=== PATIENT | male | born 1980 | race Caucasian/White ===

== ENCOUNTER 2019-02-02 10:18 | Emergency (ER) | payer MEDICAID, SELFPAY ==
[2019-02-02 10:22] VITALS: BP 116/82; PULSE 67; RESP 16; TEMP 36.7; O2SAT 97
--- NOTE | 2019-02-02 11:13 | DI.RAD_ITS ---
EXAM: XR LUMBAR SPINE COMPLETE INDICATION: pain, r/o hardward. COMPARISON: LUMBAR SPINE COMPLETE from 04/25/2011 LUMBAR SPINE COMPLETE from 06/05/2012 TECHNIQUE: 2D digital imaging was performed. FINDINGS: Five views were obtained. There are Diana rods in place from L4 through S1 with a previously de scribed L5 on S1 spondylolisthesis again noted unchanged from 2013. There are disc implants in place at L4-5 and L5-S1. No evidence of hardware failure. No acute fracture. Intervertebral disc spaces of the upper lumbar region appear fairly well maintained. IMPRESSION: Conclusion no evidence of acute process
[2019-02-02 11:34] VITALS: BP 133/90; PULSE 54; RESP 15
--- NOTE | 2019-02-02 14:06 | W.ED.GENAD ---
Discharge Plan Disposition Patient Disposition: HOME Condition: Good Discharge Details Chief Complaint: Nk/Back Pain Clinical Impression: Back pain Primary Care Provider: None,None ED Provider: Karmen Jasso Home Meds and New Rx's Prescriptions: New cyclobenzaprine 10 mg tablet 10 mg PO TID PRN (Reason: muscle spasm) Qty: 10 RF: 0 No Action ibuprofen 600 MG tablet 600 mg PO PRN PRNRF: 0 methadone 5 mg/5 mL Solution 100 mg PO DAILY RF: 0 acetaminophen [Mapap Extra Strength] 500 MG tablet 650 mg PO PRN PRNRF: 0 Discharge Instructions Instructions: Back Pain (ED) Additional Instructions: Ice or heat to your back for discomfort. Rest activities as tolerated. Avoid heavy lifting. Use muscle relaxant as prescribed. Do not drive, drink, work while taking this medication will cause drowsiness. Do not mix with alcohol. Follow-up with primary care doctor if not improving the next 3 to 5 days. Return to the emergency room for alarming symptoms; specifically numbness, tingling or weakness of the legs, incontinence of urine or stool or for intolerable pain. Return to the ER for any worsening, alarming symptoms sooner if needed Stand Alone Forms: Work Release Discharge Data Discharge Date/Time-TO BE ENTERED AT DEPARTURE: 02/02/19 14:12 Medical Decision Making This a very pleasant 38-year-old patient who is years status post lumbar back surgery and is concerned as he had a slip and fall yesterday ultimately twisting his low back. Patient reports increase in low back pain since that time without radiation to the legs or red flags associated. On exam patient has nothing to indicate neurosurgical emergency at this time but does have lower back tenderness. Patient would prefer a x-ray of his lower back to be sure that the hardware is unchanged and intact. Patient ultimately had an x-ray which was unremarkable for acute fracture or hardware malfunction. Hardware in place per radiology's verbal order. Patient will be treated with conservative measures which were discussed in conjunction with Flexeril. Patient is compliant with his methadone. Alarming symptoms discussed. The patient was stable and requested discharge. Prior to discharge, my usual and customary return precautions were reviewed with the patient - this included follow-up instructions and reasons to return to the Emergency Department if conditions worsens, does not improve as expected, or other new concerns arise. HPI General Date/Time Provider Initiated Documentation: 02/02/19 11:06. HPI Narrative: This a pleasant 38-year-old man who reports back pain. Patient reports he is several years status post back surgery with significant hardware in his lower back. Patient reports yesterday he slipped and twisted his back. Did not fall and strike the ground however does report increase in lower back pain since that time. Patient is worse on the left and in the lower back without radiation into his legs. No associated numbness, tingling or weakness. No red flags. Patient reports taking [id number] medication as well as his methadone which he is compliant with without relief. No fevers, chills or ill feeling. Related Data Home Medications Medication Instructions Recorded Confirmed acetaminophen [Tylenol] 650 mg PO PRN PRN 05/19/16 02/02/19 ibuprofen 600 mg PO PRN PRN 07/24/16 02/02/19 cyclobenzaprine 10 mg PO TID PRN #10 tab 02/02/19 methadone 100 mg PO DAILY 02/02/19 02/02/19 Previous Rx's Medication Instructions Recorded cyclobenzaprine 10 mg PO TID PRN #10 tab 02/02/19 Allergies Allergy/AdvReac Type Severity Reaction Status Date / Time amoxicillin Allergy Severe Anaphylaxsi Unverified 02/02/19 10:27 s Penicillins AdvReac Severe Anaphylaxsi Unverified 02/02/19 10:27 s General Stated Complaint: Nk/Back Pain KIRSTY: 3 Review of Systems Review of Systems ROS Unobtainable: All systems reviewed & are unremarkable except as noted in HPI and below Constitutional Constitutional: Denies chills, Denies fatigue, Denies fever(s) and Denies headache(s) ENT Ears, Nose, Mouth, and Throat: Denies headache(s) and Denies neck pain Musculoskeletal Musculoskeletal: Reports back pain, Denies muscle weakness, Denies neck pain, Denies numbness and Denies radiating pain into limb Integumentary/Breasts Skin/Breast: Denies erythema, Denies rash and Denies wounds Neurologic Neurologic: Denies headache(s) and Denies numbness Endocrine Endocrine: Denies fatigue [facility] Medical History Back pain, lumbosacral (Acute) Fall from roof 2011 Opiate addiction (Acute) In [facility] methadone program currently Surgical History Hx of appendectomy (Chronic) Previous back surgery (Acute) L4, L5, S1 2017 @ [facility] Social History Smoking/Tobacco Use Status: Current every day Alcohol Intake: never Drug use: Rarely Substance use type: marijuana Do you feel safe at home: Yes Do you feel safe in your relationship?: Yes Exam Narrative Exam Narrative: CONST: Healthy appearing patient, in no acute distress. Well hydrated. Alert and alert. NECK: Normal visual inspection. FROM. Trachea midline. No Midline tenderness. CHEST: Normal insepection of the chest. RESP: Normal respiratory effort. Speaking full sentences. No cough. No audible wheezing. No retractions. MUSCULOSKELETAL: Normal Gait. FROM of all extremities. Distal neurovascularly intact. Sensation equal bilaterally. No foot drop. Reflexes intact bilaterally Back; no cervical or thoracic midline tenderness of the back. Surgical scar in place in the lumbar spine. Patient with mild lumbar tenderness with palpation over the midline as well as the paraspinal muscles on the left. No sciatic notch tenderness. Straight leg raise intact with mild increase in pain with full straight leg raise at 90 degrees. SKIN: Normal. Dry. No rashes. NEURO: Alert and awake. Speech clear. PSYCH: Normal affect. Cooperative. Course Vital Signs Vital signs: Vital Signs Temperature 36.7 C 02/02/19 10:22 Pulse 67 02/02/19 10:22 Respiratory Rate 16 02/02/19 10:22 Blood Pressure 116/82 02/02/19 10:22 Pulse Oximetry 97 02/02/19 10:22 Temperature 36.7 C 02/02/19 10:22 Temperature Source Skin 02/02/19 10:22 Pulse 54 L 02/02/19 11:34 Respiratory Rate 15 02/02/19 11:34 Respiratory Effort 02/02/19 10:29 Blood Pressure 133/90 02/02/19 11:34 Blood Pressure Mean 104 02/02/19 11:34 Blood Pressure Position Sitting 02/02/19 10:22 Pulse Oximetry 97 02/02/19 10:22 Oxygen Delivery Method Room Air 02/02/19 10:22 Oxygen Flow Rate 0 02/02/19 10:22 Pain Level 10 02/02/19 10:39
[2019-02-02 14:19] VITALS: BP 123/73; PULSE 88; RESP 16; TEMP 36.7; O2SAT 97
== END 2019-02-02 14:12 | disposition home or self-care (01) ==
PROVIDERS: Emergency Provider Physician Assistant
DX: M54.5 Low back pain (principal); Z96.9 Presence of functional implant, unspecified; Z79.891 Long term (current) use of opiate analgesic
CPT/HCPCS: 99283; 72110

== ENCOUNTER 2020-07-16 09:26 | Emergency (ER) | payer MEDICAID, SELFPAY ==
--- NOTE | 2020-07-16 09:30 | DI.RAD_ITS ---
EXAM: XR THUMB RT CLINICAL HISTORY: Pain after injuy. TECHNIQUE: 2D digital imaging was performed. COMPARISON: No exams were available for comparison FINDINGS: There is no evidence of obvious fracture or dislocation. No radiopaque foreign body. On 1 image is a subtle suggestion of a nondisplaced tuft fracture of the distal phalanx of the thumb. If clinically indicated additional dedicated views of the thumb could be performed. Nevertheless, th is would be a nondisplaced fracture. There is no radiopaque foreign body. IMPRESSION: Possible subtle nondisplaced fracture of the tuft of the distal phalanx of the thumb. DATA REPOSITORY: RADIATION DOSE DELIVERED:
[2020-07-16 09:31] VITALS: BP 146/84; PULSE 83; RESP 16; TEMP 36.4; O2SAT 99
--- NOTE | 2020-07-16 09:38 | W.ED.GENAD ---
Discharge Plan Disposition Patient Disposition: HOME Condition: Improving Discharge Details Clinical Impression: Sprain of ulnar collateral ligament Primary Care Provider: None,None ED Provider: Rivas Mejia Home Meds and New Rx's Prescriptions: Continued ibuprofen 600 MG tablet 600 mg PO PRN PRNRF: 0 methadone 5 mg/5 mL Solution 110 mg PO DAILY RF: 0 cyclobenzaprine 10 mg tablet 10 mg PO TID PRN (Reason: muscle spasm) Qty: 10 RF: 0 acetaminophen [Mapap Extra Strength] 500 MG tablet 650 mg PO PRN PRNRF: 0 gabapentin 300 mg capsule 300 mg PO QID RF: 0 Discharge Instructions Additional Instructions: Please thumb in thumb spica splint. As discussed, please follow-up with orthopedics, call them for an appointment time at [phone]. Continue Tylenol and/or ibuprofen as needed for pain. May use ice on top of splint to reduce discomfort. Elevate above the level of the heart to reduce pain and swelling. Return for any acute concerns. Medical Decision Making 39-year-old male was using a ratchet on a car part with his thumb lying on the axis of the ratchet handle while gripping and forcefully pushing away. He felt his thumb give out and is developed pain at the base of the thumb since that time. Referred for x-ray which notes questionable nondisplaced fracture of distal phalanx. I am more concerned for ulnar collateral ligament injury, will place the patient in a splint with thumb spica, and have him follow-up in orthopedic clinic. He understands homecare and follow-up, as well as return precautions. He is stable for discharge to home HPI General Mode of arrival: ambulatory. Date/Time Provider Initiated Documentation: 07/16/20 09:26. Limitations to Documentation: no limitations. Information obtained by: patient. History of Present Illness 39 year old M presents to the emergency department with the chief complaint of Right thumb injury while using a ratchet last pm, described as moderate, Quality is described as dull and constant, and is localized to the right and upper extremity. Patient reports no radiation. Patient started experiencing this hour(s) and it has been constant. No relieving factors improve symptom(s), No exacerbating factors reported . Patient notes weakness. Patient did receive the following treatments prior to arrival, NSAID Related Data Home Medications Medication Instructions Recorded Confirmed acetaminophen [Mapap Extra 650 mg PO PRN PRN 05/19/16 07/16/20 Strength] ibuprofen 600 mg PO PRN PRN 07/24/16 07/16/20 cyclobenzaprine 10 mg PO TID PRN #10 tab 02/02/19 07/16/20 methadone 110 mg PO DAILY 02/02/19 07/16/20 gabapentin 300 mg PO QID 07/16/20 07/16/20 Previous Rx's Medication Instructions Recorded cyclobenzaprine 10 mg PO TID PRN #10 tab 02/02/19 Allergies Allergy/AdvReac Type Severity Reaction Status Date / Time amoxicillin Allergy Severe Anaphylaxsi Unverified 07/16/20 09:33 s Penicillins AdvReac Severe Anaphylaxsi Unverified 07/16/20 09:33 s General Stated Complaint: Orthopedic KIRSTY: 4 Review of Systems Narrative: 4 systems reviewed and otherwise negative. No other injury. No numbness. Pain with movement. [facility] Medical History Back pain, lumbosacral Fall from roof 2011 Opiate addiction In [facility] methadone program currently Surgical History Hx of appendectomy Previous back surgery L4, L5, S1 2017 @ [facility] Social History Smoking/Tobacco Use Status: Current every day Smoking risk assessment performed?: Yes Alcohol Intake: never Drug use: Rarely Substance use type: marijuana Do you feel safe at home: Yes Do you feel safe in your relationship?: Yes Exam Narrative Exam Narrative: GEN: awake, alert, oriented 3. Pleasant, well groomed, interactive. HEAD: Normocephalic, atraumatic ENT: Mucous membranes moist, oropharynx unremarkable, External ear exam unremarkable EYES: PERRL, EOMI NECK: Full ROM, no WAN, no menigismus EXT: Right thumb tender proximally and overlying the anatomical snuffbox. Minimal pain with resisted supination. Pain with axial loading of the right thumb. Motor is limited in apposition by pain. There is laxity of the thumb with ulnar stress, although the exam is compromised by pain. Neuro: Grossly normal neurologic exam, conversant, interactive. Psych: Speech fluent, thoughts congruent, affect normal Course Vital Signs Vital signs: Vital Signs Temperature 36.4 C L 07/16/20 09:31 Pulse 83 07/16/20 09:31 Respiratory Rate 16 07/16/20 09:31 Blood Pressure 146/84 H 07/16/20 09:31 Pulse Oximetry 99 07/16/20 09:31 Temperature 36.4 C L 07/16/20 09:31 Temperature Source Skin 07/16/20 09:31 Pulse 83 07/16/20 09:31 Respiratory Rate 16 07/16/20 09:31 Respiratory Effort Non-Labored 07/16/20 09:31 Blood Pressure 146/84 H 07/16/20 09:31 Blood Pressure Position Sitting 07/16/20 09:31 Pulse Oximetry 99 07/16/20 09:31 Oxygen Delivery Method Room Air 07/16/20 09:31 Oxygen Flow Rate 0 07/16/20 09:31 Pain Level 6 07/16/20 09:35
--- NOTE | 2020-07-16 10:00 | DI.VRAD_ITS ---
PROCEDURE INFORMATION: Exam: XR Right Finger(s) Exam date and time: 07/16/2020 9:45 AM Age: 39 years old Clinical indication: Injury or trauma; Other: Smashed; Blunt trauma (contusions or hematomas); Finger; Right; Thumb TECHNIQUE: Imaging protocol: XR Right fingers. Views: Minimum 2 views. COMPARISON: No relevant images were readily available for comparison purposes. FINDINGS: Bones/joints: Questionable acute nondisplaced fracture distal phalanx 1st digit. Best seen on image 1 series 3. Soft tissues: Mild soft tissue swelling. IMPRESSION: Questionable nondisplaced fracture 1st digit distal phalanx. Dictated and Authenticated by: Lm Hathaway MD. Ordering:OBDULIA Hathaway MD
== END 2020-07-16 10:10 | disposition home or self-care (01) ==
PROVIDERS: Emergency Provider Emergency Medicine
DX: S63.641A Sprain of metacarpophalangeal joint of right thumb, initial encounter (principal); X50.9XXA Other and unspecified overexertion or strenuous movements or postures, initial encounter
CPT/HCPCS: 29125; 99283; 73140

== ENCOUNTER 2022-07-10 03:04 | Emergency (ER) | payer MEDICAID, SELFPAY ==
[2022-07-10 03:08] VITALS: BP 129/79; PULSE 92; RESP 16; TEMP 36.6; O2SAT 99
--- NOTE | 2022-07-10 03:10 | ED.GENADUL_ITS ---
Discharge Plan Disposition Patient Disposition: Home Condition: Stable Discharge Details Clinical Impression: Left elbow tendonitis Primary Care Provider: None,None ED Provider: Cordelia Walker Home Meds and New Rx's Prescriptions: New ibuprofen 600 mg tablet 600 mg PO Q6H PRNQty: 20 0RF Continued ibuprofen 600 MG tablet 600 mg PO PRN PRN acetaminophen [Mapap Extra Strength] 500 MG tablet 650 mg PO PRN PRN gabapentin 300 mg capsule 800 mg PO QID Patient Comments: TK 1 C PO BID AND 2 CS HS UTD FOR 30 DAYS Discharge Instructions Instructions: Tendinitis (ED) Additional Instructions: You likely have a tendinitis which is an inflammation of the tendon in your elbow from repetitive use. Rest, ice, and elevate the affected area as much as possible. Take 600 mg of ibuprofen every 6 hours as needed and directed for pain. You can also take 500 mg of Tylenol every 4 hours as needed and directed for p ain. Follow-up with your primary care doctor in 1 week and for referral to orthopedics for further evaluation if indicated. Return to the emergency department with any worsening or new concerning sy mptoms. Referrals: Lauri Vázquez MD [ [facility] STAFF PHYSICIAN] - Discharge Data Discharge Physician: Cordelia Walker Medical Decision Making 41-year-old [id number] male diagnosed with tennis elbow several months ago presents with worsening left elbow pain for the past week. Denies any recent injury. Patient appears comfortable and nontoxic. He is afebrile. His left lateral epicondyle is tender to palpation and pain is reproducible with pronation and supination with resistance. There is no evidence of cellulitis, trauma or deformity. He is neurovascularly intact. Suspect lateral epicondylitis or tendinitis. Do not see an indication for x-ray as he has no recent injury and there is no evidence of trauma. Coban placed over left lateral epicondyle. Patient advised on the importance of rest, ice and alternating Tylenol and ibuprofen. He was advised that he could use a left elbow brace to help with compression. He is advised to follow-up with his primary care doctor for reevaluation and for referral to orthopedics if his symptoms do not improve or w orsen for consideration of cortisone injection. Usual and customary return precautions given prior to discharge. Medical Records Medical records reviewed: Yes I reviewed the patient's medical records. HPI General Mode of arrival: ambulatory . Date/Time Provider Initiated Documentation: 07/10/22 03:04 . Limitations to Documentation: no limitations . Information obtained by: patient . HPI Narrative: Patient is a 41-year-old left hand dominant male diagnosed recently with tennis elbow in his left elbow presents with worsening left elbow pain for the past week. Patient denies any recent injury but states he is mainly left-handed and works frequently with his hands. Patient states he has been taking ibuprofen and Tylenol without significant relief. Patient denies any known fever. Related Data Home Medications Medication Instructions Recorded Confirmed acetaminophen 500 mg tablet (Mapap 650 mg PO PRN PRN 05/19/16 07/10/22 Extra Strength) ibuprofen 600 mg tablet 600 mg PO PRN PRN 07/24/16 07/10/22 gabapentin 300 mg capsule 800 mg PO QID 07/16/20 07/10/22 ibuprofen 600 mg tablet 600 mg PO Q6H PRN #20 tabs 07/10/22 Previous Rx's Medication Instructions Recorded ibuprofen 600 mg tablet 600 mg PO Q6H PRN #20 tabs 07/10/22 Allergies Allergy/AdvReac Type Severity Reaction Status Date / Time amoxicillin Allergy Severe Anaphylaxsi Unverified 07/16/20 09:33 s Penicillins AdvReac Severe Anaphylaxsi Unverified 07/16/20 09:33 s General Stated Complaint: Orthopedic KIRSTY: 4 Review of Systems All systems reviewed & are unremarkable except as noted in HPI and below Constitutional Constitutional: Reports as per HPI, Denies chills and Denies fever(s) Eyes Eyes: Denies blurry vision ENT Ears, Nose, Mouth, and Throat: Denies dizziness, Denies sore throat and Denies throat swelling Cardiovascular Cardiovascular: Denies chest pain and Denies dyspnea Respiratory Respiratory: Denies cough and Denies dyspnea Gastrointestinal Gastrointestinal: Denies abdominal pain, Denies diarrhea and Denies vomiting Genitourinary Genitourinary: Denies hematuria and Denies dysuria Musculoskeletal Musculoskeletal: Denies back pain and Denies numbness Comments: left elbow pain Integumentary/Breasts Skin/Breast: Denies lesions and Denies rash Neurologic Neurologic: Denies dizziness, Denies localized weakness and Denies numbness Allergic/Immunologic Allergic/Immunologic: Denies throat swelling PFSH All Active Problems (Updated 07/10/22 @ 03:33 by Cordelia Walker DO) Left elbow tendonitis (Acute) Medical History Back pain, lumbosacral Fall from roof 2011 Opiate addiction In [facility] methadone program currently Surgical History Hx of appendectomy Previous back surgery L4, L5, S1 2017 @ [facility] Social History Smoking/Tobacco Use Status: Current every day Smoking risk assessment performed?: Yes Alcohol Intake: never Drug use: Rarely Substance use type: marijuana Do you feel safe at home: Yes Do you feel safe in your relationship?: Yes Exam Const General: cooperative, healthy appearing and no acute distress HENMT Head: normal to inspection Mouth: oral mucosae normal Eyes General: appearance normal, both eyes and all related structures Neck Neck: normal visual inspection Resp Effort & Inspection: normal respiratory effort and able to speak in complete sentences Cardio Rate: regular rate Skin General skin exam: no rashes or lesions noted Neuro General: patient alert, patient awake and patient oriented x3 Motor: muscle tone normal throughout Extrem General: normal to inspection Elbow/forearm/wrist images: 1. Tenderness to palpation overlying left lateral epicondyle. Pain in this location is reproduced with pronation and supination, increased with resistance. There is no edema, erythema, ecchymosis. There is no deformity. There is no tenderness to palpation to olecranon or medial epicondyle. Other: Normal flexion and extension at left elbow. Left radial and ulnar pulses intact. Psych Appearance: grossly normal Affect: normal affect
== END 2022-07-10 03:43 | disposition home or self-care (01) ==
PROVIDERS: Emergency Provider Physician Assistant
DX: M77.12 Lateral epicondylitis, left elbow (principal)
CPT/HCPCS: 99283

== ENCOUNTER 2022-09-13 22:12 | Emergency (ER) | payer MEDICAID, SELFPAY ==
--- NOTE | 2022-09-13 22:15 | DI.RAD_ITS ---
Exam(s) XR FOOT RT COMPLETE EXAM: XR FOOT RT COMPLETE CLINICAL HISTORY: pain, atraumatic. TECHNIQUE: 2D digital imaging was performed of the right foot. Three images were obtained. AP, obl ique and lateral views were obtained. COMPARISON: No exams were available for comparison FINDINGS: BONES: No acute fracture is present. No bony destructive lesion is seen. There is a small cystic well -circumscribed structure at the base of the proximal phalanx of the great toe. This may represent a small subchondral cyst. Bone mineralization is otherwise age-appropriate. JOINTS: No dislocation present. SOFT TISSUE: Normal. IMPRESSION: 1. No acute fracture or dislocation. 2. Benign-appearing simple cyst in the subchondral bone of the proximal phalanx of the great toe. Th is may represent a subchondral cyst. DATA REPOSITORY: RADIATION DOSE DELIVERED:
[2022-09-13 22:16] VITALS: BP 153/94; PULSE 88; RESP 16; TEMP 36.7; O2SAT 100
[2022-09-13] MEDS: Ibuprofen 600 MG TAB PO (23:10)
--- NOTE | 2022-09-13 23:11 | DI.VRAD_ITS ---
PROCEDURE INFORMATION: Exam: XR Right Foot Exam date and time: 09/13/2022 10:38 PM Age: 41 years old Clinical indication: Foot; Right; Patient HX: Pain, atraumatic TECHNIQUE: Imaging protocol: Radiologic exam of the right foot. Views: 3 or more views. COMPARISON: No relevant prior studies available. FINDINGS: Bones/joints: Low-attenuation lesion present within the proximal aspect of the proximal phalanx of the right great toe measuring 6.2 x 4.7 mm likely representing small subchondral cyst. Consider early osteoarthritis. Bone mineralization is otherwise age-appropriate. There is no evidence of fracture. No evidence of dislocation. Mild joint space narrowing present within the proximal and distal interphalangeal joints. Soft tissues: No radiopaque foreign body present. There is soft tissue swelling present. IMPRESSION: 1. Possible early osteoarthritis. 2. Soft-tissue swelling right foot. Dictated and Authenticated by: Marquis Cameron MD. Ordering:FOX Ackerman MD
--- NOTE | 2022-09-13 23:33 | ED.GENADUL_ITS ---
Discharge Plan Disposition Patient Disposition: Home Discharge Details Clinical Impression: Muscle strain of foot Primary Care Provider: Сергей Kennedy ED Provider: Meka Lundberg Home Meds and New Rx's Prescriptions: Continued ibuprofen 600 MG tablet 600 mg PO PRN PRN acetaminophen [Mapap Extra Strength] 500 MG tablet 650 mg PO PRN PRN gabapentin 300 mg capsule 800 mg PO QID Patient Comments: TK 1 C PO BID AND 2 CS HS UTD FOR 30 DAYS ibuprofen 600 mg tablet 600 mg PO Q6H PRNQty: 20 0RF Discharge Instructions Additional Instructions: Take ibuprofen 600 mg every 8 hours with food, take Tylenol 650 mg every 4-6 paulina rs Wear your boot Repeat film in 1 week with persistent pain, with worsening pain, fever, chills, please return immediately for reassessment return earlier should he have new onset complaints Referrals: Сергей Kennedy [Primary Care Provider] - Discharge Data Discharge Date/Time-TO BE ENTERED AT DEPARTURE: 09/14/22 00:44 Medical Decision Making 41-year-old male presents with report of injury to right foot X-ray does not show significant acute abnormality, small subchondral cyst, suspect osteoarthritis per radiology interpretation my review Placed in boot for comfort, ibuprofen and Tylenol No evidence of obvious fracture HPI General Date/Time Provider Initiated Documentation: 09/13/22 22:26 . HPI Narrative: This 41-year-old male presents with report of right foot pain, denies known injury. Denies history of this spot before. States he noticed a bruise on the area. Thinks he may have injured it at work today. Related Data Home Medications Medication Instructions Recorded Confirmed acetaminophen 500 mg tablet (Mapap 650 mg PO PRN PRN 05/19/16 09/13/22 Extra Strength) ibuprofen 600 mg tablet 600 mg PO PRN PRN 07/24/16 09/13/22 gabapentin 300 mg capsule 800 mg PO QID 07/16/20 09/13/22 ibuprofen 600 mg tablet 600 mg PO Q6H PRN #20 tabs 07/10/22 09/13/22 Previous Rx's Medication Instructions Recorded ibuprofen 600 mg tablet 600 mg PO Q6H PRN #20 tabs 07/10/22 Allergies Allergy/AdvReac Type Severity Reaction Status Date / Time amoxicillin Allergy Severe Anaphylaxsi Unverified 09/13/22 22:19 s Penicillins Allergy Severe Anaphylaxsi Unverified 09/14/22 07:09 s General Stated Complaint: Orthopedic KIRSTY: 4 PFSH All Active Problems (Updated 09/13/22 @ 23:15 by RADHA Zelaya) Muscle strain of foot (Acute) Medical History Back pain, lumbosacral Fall from roof 2011 Opiate addiction In [facility] methadone program currently Surgical History Hx of appendectomy Previous back surgery L4, L5, S1 2017 @ [facility] Social History Smoking/Tobacco Use Status: Current every day Tobacco Type: e-cigarettes Smoking risk assessment performed?: Yes Alcohol Intake: never Drug use: Rarely Substance use type: marijuana Do you feel safe at home: Yes Do you feel safe in your relationship?: Yes Exam Extrem Other: Ecchymosis noted to your right lateral foot neurovascularly intact, no ankle tenderness, no evidence of infection Neurovascularly intact Course Vital Signs Vital signs: Vital Signs Temperature 36.7 C 09/13/22 22:16 Pulse 88 09/13/22 22:16 Respiratory Rate 16 09/13/22 22:16 Blood Pressure 153/94 H 09/13/22 22:16 Pulse Oximetry 100 09/13/22 22:16 Temperature 36.7 C 09/13/22 22:16 Temperature Source Temporal Artery Scan 09/13/22 22:16 Pulse 88 09/13/22 22:16 Respiratory Rate 16 09/13/22 22:16 Respiratory Effort Normal 09/13/22 22:16 Blood Pressure 153/94 H 09/13/22 22:16 Blood Pressure Position Sitting 09/13/22 22:16 Pulse Oximetry 100 09/13/22 22:16 Oxygen Delivery Method Room Air 09/13/22 22:16 Oxygen Flow Rate 0 09/13/22 22:16 Pain Level 9 09/13/22 22:46
[2022-09-13] MEDS: Acetaminophen 325 MG TAB 650 MG PO (23:45)
== END 2022-09-14 00:44 | disposition home or self-care (01) ==
PROVIDERS: Emergency Provider Physician Assistant; PCP Physician Assistant
DX: S96.911A Strain of unspecified muscle and tendon at ankle and foot level, right foot, initial encounter (principal); X58.XXXA Exposure to other specified factors, initial encounter
CPT/HCPCS: 99283; 73630

== ENCOUNTER 2023-06-24 18:56 | Emergency (ER) | payer SELFPAY ==
[2023-06-24 18:59] VITALS: BP 153/112; PULSE 105; RESP 18; TEMP 36.9; O2SAT 98
--- NOTE | 2023-06-24 19:00 | DI.RAD_ITS ---
Exam(s) XR SHOULDER LT COMPLETE 2+V EXAM: XR SHOULDER LT COMPLETE 2+V CLINICAL HISTORY: fall saturday, L shoulder pain. TECHNIQUE: 2D digital imaging was performed of the left shoulder. Five images were obtained. AP, G rashey, Y-view and axillary views were obtained. COMPARISON: No exams were available for comparison FINDINGS: BONES: No acute fracture is present. No bony destructive lesion is seen. JOINTS: No dislocation present. SOFT TISSUE: Normal. IMPRESSION: No acute fracture or dislocation. DATA REPOSITORY: RADIATION DOSE DELIVERED:
--- NOTE | 2023-06-24 19:00 | RT.EKG_ITS ---
APPROVED REPORT Exam: Resting ECG Reason for Exam: chest pain Patient Location: E HR:101 bpm ECG Measurements Heart Rate 101 AXIS WA 177 P 34 QRSd 94 QRS 65 QT 383 T 27 QTc 498 Conclusion Sinus tachycardia...rate> 99 Consider left ventricular hypertrophy...(S V1+R V5/V6) >3.50mV sinus tach, normal axis, normal intervals, LVH
[2023-06-24 19:20] LABS: Abs Immature Grans 0.01 10^3/uL (0.0-0.06); Absolute Basophil Count 0.02 10^3/uL (0.0-0.2); Absolute Eosinophil Count 0.08 10^3/uL (0.0-0.7); Absolute Lymphocyte Count 1.51 10^3/uL (1.2-3.4); Absolute Monocyte Count 0.47 10^3/uL (0.1-0.8); Absolute Neutrophil Count 5.75 10^3/uL (1.2-6.7); Basophils % 0.3; HCT 37.7 % (40.0-50.0); HGB 13.4 g/dL (13.5-17.5); Immature Grans % 0.1; Lymphocytes % 19.3; MCH 31.9 pg (27.0-33.0); MCHC 35.5 % (32.0-36.0); MCV 90 fL (80-95); MPV 10.1 fL (8.0-11.0); Neutrophils % 73.3; Platelet Count 164 10^3/uL (130-400); RDW 11.9 % (11.8-14.1); RDW-SD 38.8 fL; WBC 7.84 10^3/uL (4.4-10.8)
--- NOTE | 2023-06-24 19:33 | W.ED.GENAD ---
Discharge Plan Disposition Patient Disposition: Against Medical Advice Condition: Stable Discharge Details Clinical Impression: Chest pain of uncertain etiology Primary Care Provider: Сергей Kennedy ED Provider: Dwain Jackson Home Meds and New Rx's Prescriptions: No Action ibuprofen 600 MG tablet 600 mg PO PRN PRN dextroamphetamine-amphetamine 20 mg tablet Patient Comments: TAKE ONE TABLET BY MOUTH TWICE A DAY acetaminophen [Mapap Extra Strength] 500 MG tablet 650 mg PO PRN PRN gabapentin 300 mg capsule 800 mg PO QID Patient Comments: TK 1 C PO BID AND 2 CS HS UTD FOR 30 DAYS ibuprofen 600 mg tablet 600 mg PO Q6H PRNQty: 20 0RF HPI General Date/Time Provider Initiated Documentation: 06/24/23 19:05. HPI Narrative: 42 year-old male presents to ED today by POV/ambulating with a chief complaint of L sided chest pain, pain with deep inspiration - he fell through a floor on Saturday, and landed in his groin as well as to L axilla- endorses bruising and pain to this area of L axilla, much more mild to groin area. Quality described as sharp pain with deep inspiration, no radiation to fever, cough, diaphoresis, dizziness, hemoptysis. Severity is described as 8/10. Palliating factors include nothing specific- woke up with the pain this morning. Provoking factors include nothing specific. Patient not anticoagulated. Related Data Home Medications Medication Instructions Recorded Confirmed acetaminophen 500 mg tablet (Mapap 650 mg PO PRN PRN 05/19/16 06/24/23 Extra Strength) ibuprofen 600 mg tablet 600 mg PO PRN PRN 07/24/16 06/24/23 gabapentin 300 mg capsule 800 mg PO QID 07/16/20 06/24/23 ibuprofen 600 mg tablet 600 mg PO Q6H PRN #20 tabs 07/10/22 06/24/23 dextroamphetamine-amphetamine 20 06/24/23 mg tablet Previous Rx's Medication Instructions Recorded ibuprofen 600 mg tablet 600 mg PO Q6H PRN #20 tabs 07/10/22 Allergies Allergy/AdvReac Type Severity Reaction Status Date / Time amoxicillin Allergy Severe Anaphylaxsi Unverified 06/24/23 19:07 s Penicillins Allergy Severe Anaphylaxsi Unverified 06/24/23 19:07 s General Stated Complaint: Chest Pain KIRSTY: 2 Review of Systems All systems reviewed & are unremarkable except as noted in HPI and below Exam Narrative Exam Narrative: GENERAL APPEARANCE: Well-nourished, non-toxic, awake and alert, atraumatic, no acute distress. SKIN: Warm, pink, dry, intact, without rashes/lesions/ulcerations. HEAD: Normocephalic, atraumatic, normal hair distribution for gender/age. EYES: Pupils PERRLA, EOMs intact without nystagmus, normal conjunctiva, no exudates on lids/lashes. ENT: Nares patent, no circumoral cyanosis, no facial swelling NECK: Supple, trachea midline, painless cervical ROM. LUNGS/CHEST: Lungs CTA bilaterally- no rhonchi/rales/wheezes diffusely, no focally diminished or absent lung sounds diffusely, non-labored respirations, normal A/P diameter, symmetrical expansion, no chest wall deformity, no flail segment, no paradoxical motion, no crepitus to L axillary ribs- tender with palpation, small area of bruising to L axillary ribs HEART (CV/PV): Regular rate- mildly tachycardic and rhythm without murmur, no peripheral edema, no JVD. ABDOMEN: Soft, non-distended, no guarding, no tenderness. MSK: Normal ROM, no swelling/deformity to bilateral UEs or LEs, moving all extremities without weakness, no cyanosis, spine midline without tenderness, normal curvature, TTP to L shoulder diffusely without deformity or crepitus, clavicle stable, ROM intact, strength 5/5 L UE NEURO: Mental Status AAOx4 - alert to person, place, time, events No facial droop, no forehead involvement. Motor: No focal weakness - strength 5/5 in bilateral UEs and LEs, proximal and distal, symmetric. Sensory: sensation intact to light touch globally. Gait normal: patient ambulated without ataxia into ED room. PSYCH: euthymic, cooperative, pleasant, appropriate speech Course Vital Signs Vital signs: Vital Signs Temperature 36.9 C 06/24/23 18:59 Pulse 105 H 06/24/23 18:59 Respiratory Rate 18 06/24/23 18:59 Blood Pressure 153/112 H 06/24/23 18:59 Pulse Oximetry 98 06/24/23 18:59 Temperature 36.9 C 06/24/23 18:59 Temperature Source Tympanic 06/24/23 18:59 Pulse 105 H 06/24/23 18:59 Respiratory Rate 18 06/24/23 18:59 Respiratory Effort Normal 06/24/23 19:09 Blood Pressure 153/112 H 06/24/23 18:59 Blood Pressure Position Sitting 06/24/23 18:59 Pulse Oximetry 98 06/24/23 18:59 Oxygen Delivery Method Room Air 06/24/23 18:59 Oxygen Flow Rate 0 06/24/23 18:59 Lab/Test Results Lab/Test Results: Laboratory Tests Range/Units 06/24/23 19:11 WBC (4.4-10.8) 10^3/uL 7.84 RBC (4.36-5.78) 10^6/uL 4.20 L Hgb (13.5-17.5) g/dL 13.4 L Hct (40.0-50.0) % 37.7 L MCV (80-95) fL 90 MCH (27.0-33.0) pg 31.9 MCHC (32.0-36.0) % 35.5 RDW (11.8-14.1) % 11.9 Plt Count (130-400) 10^3/uL 164 MPV (8.0-11.0) fL 10.1 Immature Gran % 0.1 Neutrophils % 73.3 Lymphocytes % 19.3 Monocytes % 6.0 Eosinophils % 1.0 Basophils % 0.3 Nucleated RBC % (0.0-0.3) % 0.0 Absolute Neutrophils (1.2-6.7) 10^3/uL 5.75 Absolute Lymphocytes (1.2-3.4) 10^3/uL 1.51 Absolute Monocytes (0.1-0.8) 10^3/uL 0.47 Absolute Eosinophils (0.0-0.7) 10^3/uL 0.08 Absolute Basophils (0.0-0.2) 10^3/uL 0.02 Medical Decision Making This dictation utilizes [id number] dictation software and may contain unedited grammatical errors. 42 y/o M presents to ED today with a chief complaint of fall on saturday- [place] floor [place]- impact on beam to L axilla w/ ecchymosis + shoulder pain- less so to groin, states sharp pain with deep inspiration. No diaphoresis, hemoptysis, fever, cough, dizziness. Patients' medical history: negative, states no cardiac history. 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 Pertinent exam findings / vital signs include no crepitus to left axillary ribs, no paradoxical motion, no focally diminished or absent lung sounds, mild tachycardia. Differential / pathologies of concern include pulmonary contusion, fractured rib, pneumothorax, pulmonary embolism. Diagnostic studies of: -CBC, CMP, troponin, BNP, D-dimer, EKG, x-ray left shoulder, CTA of the chest. -No leukocytosis -D-dimer mildly elevated at 639 reflex to CTA, patient left before this was performed AGAINST MEDICAL ADVICE -Mild low magnesium -Troponin and BNP negative -Lipase negative -X-ray of the shoulder shows no acute fracture, there is no visible pneumothorax but this is not a complete rule out -EKG shows sinus rhythm at 101 bpm with P waves followed by narrow complex QRS some Q deflections in lead II and III as well as aVF, normal axis, mild ST depression in lead III, do not suspect ischemic changes, LVH, poor R-wave progression, normal QTc Interventions of: -Patient had medications ordered for pain when he left AMA, refused to wait even 2 minutes. ED Course/Assessment/Plan: 42-year-old male presents with chest pain after a fall to the floor catching himself on a beam under the left axilla with some bruising to the area I do suspect that he may have rib injury but pulmonary contusion or pneumothorax is not ruled out. The patient stated he wanted to leave, his shoulder x-ray was unremarkable and his labs showed no likely acute coronary syndrome, his CMP was benign and had no signs of infection, his D-dimer was slightly elevated and he was tachycardic with pain with deep inspiration so I did order a CTA PE study but he left AGAINST MEDICAL ADVICE before this was performed. Stated he might return tomorrow, I advised him that we were not ruling out pneumothorax definitively as well as rib fractures or pulmonary embolism which is a potentially fatal diagnosis, the patient acknowledged this risk and chose to leave AGAINST MEDICAL ADVICE. Findings not consistent with hypoxic respiratory failure, acute coronary syndrome. Disposition of Chest Pain of Uncertain Etiology. Patient verbalized understanding of the plan and return to ED criteria and engaged in shared decision making. Medical Records Medical records reviewed: Yes I reviewed the patient's medical records. Imaging Data Radiologic Study: Attestation: I personally reviewed and interpreted this imaging study as follows: Imaging: X-Ray My impression: No L PTX seen on shoulder - patient left AMA prior to chest imaging. Radiologist's impression: EXAM: XR SHOULDER LT COMPLETE 2+V CLINICAL HISTORY: fall saturday, L shoulder pain. TECHNIQUE: 2D digital imaging was performed of the left shoulder. Five images were obtained. AP, Grashey, Y-view and axillary views were obtained. COMPARISON: No exams were available for comparison FINDINGS: BONES: No acute fracture is present. No bony destructive lesion is seen. JOINTS: No dislocation present. SOFT TISSUE: Normal. IMPRESSION: No acute fracture or dislocation. Lab Data Lab results reviewed: Yes I reviewed the patient's lab results. Labs: Laboratory Tests Range/Units 06/24/23 19:11 WBC (4.4-10.8) 10^3/uL 7.84 RBC (4.36-5.78) 10^6/uL 4.20 L Hgb (13.5-17.5) g/dL 13.4 L Hct (40.0-50.0) % 37.7 L MCV (80-95) fL 90 MCH (27.0-33.0) pg 31.9 MCHC (32.0-36.0) % 35.5 RDW (11.8-14.1) % 11.9 Plt Count (130-400) 10^3/uL 164 MPV (8.0-11.0) fL 10.1 Immature Gran % 0.1 Neutrophils % 73.3 Lymphocytes % 19.3 Monocytes % 6.0 Eosinophils % 1.0 Basophils % 0.3 Nucleated RBC % (0.0-0.3) % 0.0 Absolute Neutrophils (1.2-6.7) 10^3/uL 5.75 Absolute Lymphocytes (1.2-3.4) 10^3/uL 1.51 Absolute Monocytes (0.1-0.8) 10^3/uL 0.47 Absolute Eosinophils (0.0-0.7) 10^3/uL 0.08 Absolute Basophils (0.0-0.2) 10^3/uL 0.02 D-Dimer (<500) ng/mlFEU 639 H Sodium (136-145) mmol/L 143 Potassium (3.5-5.1) mmol/L 3.7 Chloride (98-107) mmol/L 105 Carbon Dioxide (21.0-32.0) mmol/L 28.1 Anion Gap (3-11) mmol/L 9.9 BUN (7-18) mg/dL 11 Creatinine (0.70-1.30) mg/dL 1.2 Est GFR (CKD-EPI 2020) (mL/min/1.73m2) 76.48 Glucose (74-106) mg/dL 112 H Calcium (8.5-10.1) mg/dL 9.2 Magnesium (1.8-2.4) mg/dL 1.7 L Total Bilirubin (0.2-1.0) mg/dL 0.4 AST (15-37) U/L 36 ALT (16-63) U/L 44 Alkaline Phosphatase (46-116) U/L 96 Troponin I (< or =60) ng/L < 50 NT-Pro-B Natriuret Pep (<300) pg/mL 71 Total Protein (6.4-8.2) g/dL 7.1 Albumin (3.4-5.0) g/dL 4.0 Lipase (16-77) U/L 29 Quality:SDOH Health Related Social Needs: No Data to Display PFSH All Active Problems (Updated 06/24/23 @ 20:22 by RADHA Martinez) Chest pain of uncertain etiology (Acute) Medical History Back pain, lumbosacral Fall from roof 2011 Opiate addiction In [facility]adone [facility] currently Surgical History Previous back surgery L4, L5, S1 2017 @ [facility] Hx of appendectomy Social History Smoking/Tobacco Use Status: Current every day Tobacco Type: e-cigarettes Smoking risk assessment performed?: Yes Alcohol Intake: never Drug use: Rarely Substance use type: marijuana Do you feel safe at home: Yes Do you feel safe in your relationship?: Yes
[2023-06-24 19:47] LABS: ALT 44 U/L (16-63); AST 36 U/L (15-37); Alkaline Phosphatase 96 U/L (46-116); Anion Gap 9.9 mmol/L (3-11); BUN 11 mg/dL (7-18); Bilirubin, Total 0.4 mg/dL (0.2-1.0); CO2 28.1 mmol/L (21.0-32.0); CREATININE 1.2 mg/dL (0.70-1.30); Calcium 9.2 mg/dL (8.5-10.1); Chloride 105 mmol/L (98-107); Estimated GFR 76.48 (mL/min/1.73m2); Glucose 112 mg/dL (74-106); Lipase 29 U/L (16-77); Magnesium 1.7 mg/dL (1.8-2.4); NT-proBNP 71 pg/mL (<300); Potassium 3.7 mmol/L (3.5-5.1); Sodium 143 mmol/L (136-145); Total Protein 7.1 g/dL (6.4-8.2); Troponin I < 50 ng/L (< or =60)
[2023-06-24 19:57] LABS: D-Dimer 639 ng/mlFEU (<500)
== END 2023-06-24 20:27 | disposition left against medical advice (07) ==
LOC: ER 22:27
PROVIDERS: Emergency Provider Physician Assistant; PCP Physician Assistant
DX: R07.9 Chest pain, unspecified (principal); Z53.21 Procedure and treatment not carried out due to patient leaving prior to being seen by health care provider; Z91.81 History of falling
CPT/HCPCS: 36415; 80053; 83690; 93005; 99285; 73030; 83735; 83880; 84484; 85025; 85379; 93010; 99284